=== PATIENT | male | born 1950 | race Caucasian/White ===

== ENCOUNTER 2018-03-22 18:10 | Emergency (ER) | payer MEDICARE, OTHER ==
--- NOTE | 2018-03-22 19:15 | ULT ---
LEFT LOWER EXTREMITY VENOUS DOPPLER: 03/22/18 HISTORY: Left lower extremity pain and edema. COMPARISON: None. TECHNIQUE: Real time guerrero scale, color doppler and spectral analysis of the left upper extremity venous system w as performed. The common femoral, femoral, proximal portion of the greater saphenous and deep femora l veins as well as the popliteal and posterior tibial veins were interrogated. Normal flow, augmentation, and compression. IMPRESSION: No deep vein thrombosis. POS: MERLYN
== END 2018-03-22 19:42 | disposition home or self-care (01) ==
LOC: ERS 18:10
DX: S86.912A Strain of unspecified muscle(s) and tendon(s) at lower leg level, left leg, initial encounter (principal); E11.9 Type 2 diabetes mellitus without complications; I10 Essential (primary) hypertension; F41.9 Anxiety disorder, unspecified; Z87.891 Personal history of nicotine dependence; Z85.46 Personal history of malignant neoplasm of prostate; Z79.899 Other long term (current) drug therapy; Z79.82 Long term (current) use of aspirin; X58.XXXA Exposure to other specified factors, initial encounter

== ENCOUNTER 2019-01-07 04:58 | Outpatient (CLI) | payer MEDICARE ==
[2019-01-07 12:22] LABS: #Eosinphils 0.1 thou/uL (0.0-0.7); #Lymphocytes 1.2 thou/uL (1.20-3.40); #Monocytes 0.5 thou/uL (0.11-0.59); #Neutrophils 2.8 thou/uL (1.40-6.50); %Basophils 0.5 % (0.0-1.0); %Eosinophils 2.3 % (0.0-10.0); %Lymphocytes 26.4 % (21.0-51.0); %Monocytes 11.3 % (0.0-10.0); %Neutrophils 59.5 % (42.0-75.0); Hemoglobin 16.8 g/dL (14.0-18.0); Mean Corpuscular HGB CONC 33.8 g/dL (32.0-36.0); Mean Corpuscular Hemoglobin 31.3 pg (27.0-31.0); Mean Corpuscular Volume 92.6 fL (78.0-98.0); Mean Platelet Volume 7.5 fL (7.4-10.4); Platelet Count 214 thou/uL (130-400); RBC Distribution Width 11.4 % (11.5-14.5); Red Blood Cell (RBC) Count 5.37 mill/uL (4.70-6.10); White Blood Cell (WBC) Count 4.7 thou/uL (4.8-10.8)
[2019-01-07 12:34] LABS: Anion Gap 16 mmol/L (10-20); BUN (Urea Nitrogen) 23 mg/dL (8.4-25.7); Calc. Creatinine Clearance 0 mL/min (70-130); Carbon Dioxide 25 mmol/L (23-31); Chloride 105 mmol/L (98-107); Estimated GFR-MDRD 64; Glucose 174 mg/dL (80-115); Potassium 4.6 mmol/L (3.5-5.1); Sodium 141 mmol/L (136-145)
== END 2019-01-07 04:59 | disposition home or self-care (01) ==
LOC: LABBT 04:58
PROVIDERS: ATTEND Specialist
DX: Z01.818 Encounter for other preprocedural examination (principal); K42.9 Umbilical hernia without obstruction or gangrene
CPT/HCPCS: 80048; 85025; 93005; 93010

== ENCOUNTER 2019-01-10 05:53 | Day surgery (SDC) | payer MEDICARE ==
--- NOTE | 2019-01-06 11:26 | HP ---
HISTORY OF PRESENT ILLNESS: Melvin Oliva is a 67-year-old male patient, retired oilfield worker and meat cutting teacher, presents with history of umbilical hernia present for many years, but bothersome in the last month. He desires repair. Plan is for robotic repair using mesh as an outpatient. He understands risks and benefits of procedure and consents. The patient also has concerns regarding his right shoulder, it has been bothersome for many years, but more bothersome lately causing increased pain especially at night. I have referred him to Dr. Salmon for evaluation. The patient reports a history of prostatitis, chronic. He has had radiation therapy 2 to 3 years ago for prostate cancer and I have told him we will avoid placing a Meza perioperatively. ALLERGIES: NONE. SOCIAL HISTORY: Tobacco, none. Alcohol, none. MEDICATIONS: 1. Aspirin 81 mg a day. 2. Invokana. 3. Vitamin D3. 4. Ezetimibe 10 mg daily. 5. Glimepiride 4 mg daily. 6. Synthroid 125 mcg daily. 7. Metoprolol 50 mg daily. 8. Omeprazole 20 mg daily. 9. Rosuvastatin 20 mg a day. 10. Januvia 200 mg daily. ALLERGIES: NONE. PAST SURGICAL HISTORY: ORIF of shoulder, lumbar surgery. PAST MEDICAL HISTORY: History of diabetes mellitus type 2, hypertension; GERD, controlled with Prilosec, asymptomatic currently; hypothyroidism treated medically; history of prostate cancer; chronic prostatitis, asymptomatic. REVIEW OF SYSTEMS: Ten-point review of systems noncontributory. PHYSICAL EXAMINATION: VITAL SIGNS: 239 pounds, 5 foot 10 inches, blood pressure 139/85, pulse 69, temperature 98.4 degrees. HEAD, EARS, EYES, NOSE, AND THROAT: Unremarkable. Sclerae nonicteric. LUNGS: Clear to auscultation. CARDIAC: Regular rate and rhythm without murmur or gallop. ABDOMEN: Soft. Umbilical hernia present, reducible. EXTREMITIES: Unremarkable. No ankle edema. SKIN: Nonjaundiced. ASSESSMENT AND PLAN: Umbilical hernia. PLAN: 1. Mesh repair, robotic approach. He understands risks and benefits. 2. Right shoulder complaints, refer to Dr. Salmon. Job ID: [id number]
[2019-01-10] MEDS ORDERED: Ketorolac Tromethamine 30 MG/ML VIAL ONE (06:26)
[2019-01-10] MEDS ORDERED: Midazolam HCl 2 mg/2 ml Vial ONE (06:38)
[2019-01-10] MEDS ORDERED: Fentanyl 250 MCG/5 ML VIAL ONE (06:38)
[2019-01-10] MEDS ORDERED: Bupivacaine/Epinephrine 0.25% 30 ML VIAL ONE (06:57)
--- NOTE | 2019-01-10 13:35 | OP ---
DATE OF PROCEDURE: 01/10/2019 PREOPERATIVE DIAGNOSIS: Umbilical hernia, incarcerated with fat. POSTOPERATIVE DIAGNOSIS: Umbilical hernia, incarcerated with fat. PROCEDURES PERFORMED: Robot laparoscopic repair of umbilical hernia, primary closure of fascial defect with 8 cm Ventralight mesh reinforcement of the fascial closure. ANESTHESIA: General, local of 0.5% Marcaine with epinephrine 30 mL. Meza placed at the beginning of the procedure and removed at the end, 180 mL left in to facilitate voiding and discharge. DESCRIPTION OF PROCEDURE: The patient was taken to the operating room, where under general anesthesia, Meza catheter was placed. Abdomen was clipped of hair, prepared with ChloraPrep and draped in routine fashion. Local anesthetic of 0.5% Marcaine with epinephrine 30 mL volume total used, infiltrated the skin and subcutaneous tissue about each port site. Left paramedian subxiphoid incision was made. Pneumoperitoneum to 15 mmHg was obtained with a Veress needle placement with an 11 balloon port presenting the laparoscope placing bilateral far lateral subcostal incision was made with 8 mm ports. A robot was docked and robot repair of umbilical hernia performed. Fatty tissue cleared of the fascia clearing the falciform cephalad for the mesh, direct approximation, overlay of the fascia. The fascial defect was closed with continuous suture #0 V-Loc suture. Pneumoperitoneum had been reduced to 9 mmHg. Mesh was then inserted and the non-coated side placed against the abdominal wall and secured with continuous suture of 2-0 V-Loc. A good approximation was noted. Good cosmetic hernia repair was appreciated. Pneumoperitoneum was reduced and good hemostasis was noted. All instruments were removed. Subxiphoid fascia was approximated with [id number] suture of 0 Vicryl suture. All skin incision was closed with continuous subcuticular suture of 4-0 Monocryl and [place] glue applied. The patient tolerated the procedure well. Job ID: [id number]
== END 2019-01-10 11:50 | disposition home or self-care (01) ==
LOC: SDC 05:53
PROVIDERS: ATTEND Specialist
PROC: 0WUF4JZ Supplement Abdominal Wall with Synthetic Substitute, Percutaneous Endoscopic Approach (ICD-10-PCS; principal; 2019-01-10)
DX: K42.0 Umbilical hernia with obstruction, without gangrene (principal); N41.1 Chronic prostatitis; E11.9 Type 2 diabetes mellitus without complications; I10 Essential (primary) hypertension; K21.9 Gastro-esophageal reflux disease without esophagitis; E03.9 Hypothyroidism, unspecified; Z79.82 Long term (current) use of aspirin; Z79.84 Long term (current) use of oral hypoglycemic drugs; Z79.899 Other long term (current) drug therapy
CPT/HCPCS: 49653; C1781; J0131; J1885; J2250; J3010

== ENCOUNTER 2019-03-20 12:33 | Outpatient (CLI) | payer MEDICARE ==
--- NOTE | 2019-03-20 14:04 | RAD ---
Lumbar spine 3 views HISTORY: Low back pain. FINDINGS: Lateral views include neutral, flexion, and extension positioning. Vertebral body heights a re maintained. Prominent osteophytosis. Frontal view not included. Precise measurement of spondylolisthesis at the lumbosacral junction is difficult due to projection a nd severe sclerosis. It is estimated at 1.5 cm the neutral view, 1.7 cm extension, and 2.1 cm upon flexion This is suggestive translational motion at the lumbosacral spondylolisthesis.
--- NOTE | 2019-03-20 15:42 | MRI ---
Exam: MRI LUMBAR SPINE WITH AND WITHOUT CONTRAST: HISTORY: Low back pain, x4 days. Previous diskectomy. COMPARISON: None TECHNIQUE: MRI lumbar spine is performed with and without intravenous gadolinium administration. Mult isequential, multiplanar imaging performed. FINDINGS: Appropriate T1 marrow signal intensity of lumbar vertebra. Lumbar spine vertebral body height is main tained. No fracture. 4.7 mm of retrolisthesis of L4 upon L5. 12.2 mm of anterolisthesis of L5 upon S1. There appear to be bilateral pars defects at L5. There is STIR hyperintensity involving the poste rior elements at L3-L4, L4-L5 bilaterally suggesting edema. Appropriate signal intensity of the visualized solid organs. Symmetric signal intensity of the parasp inal muscles. Conus medullaris terminates at the inferior aspect of T12. Postcontrast images do not demonstrate any abnormal vertebral body enhancement. No evidence of epidur al abscess. No abnormal enhancement with regards to the visualized spinal cord, cauda equina, and conus medullaris. T12-L1: Adequate disc hydration. No significant central canal stenosis or neural foraminal narrowing. L1-L2: Mild desiccation without significant loss of disc space height. No significant central canal s tenosis. Bilaterally, neural foramina are patent. L2-L3: Mild disc desiccation without significant loss of disc space height. Generalized disc bulge, l igamentum flavum thickening, and facet hypertrophy do not result in significant central canal stenosis. Bilaterally, neural foramina are patent. L3-L4: Mild loss of disc space height. Generalized disc bulge, ligament flavum thickening, and facet hypertrophy result in mild central canal stenosis. Mild right and mild to moderate left neural foraminal narrowing L4-L5: Desiccation with severe loss of disc space height. No significant posterior disc abnormality. There is evidence of epidural lipomatosis with resultant mild to moderate central canal stenosis. Abnormal enhancement in the right subarticular zone suggesting scar tissue. Scar tissue encompasses t he traversing right L5 nerve root. Left subarticular zone is unremarkable. Moderate to severe bilateral neural foraminal narrowing. There does appear to be a partial right hemilaminotomy defect. L5-S1: Desiccation with severe loss of disc space height. Generalized disc bulge, ligament flavum thi ckening, and facet hypertrophy are noted. There is evidence of epidural lipomatosis with moderate central canal stenosis. Narrowing of both subarticular zones. Mass effect without obscuration the tra versing right S1 nerve root. Partial obscuration of the traversing left S1 nerve root. Severe right and left foraminal narrowing. IMPRESSION: 1. Spondylolisthesis at L4-L5 and L5-S1 as described above. There is grade 2 anterolisthesis of L5 up on S1 with associated bilateral pars defects. 2. Epidural lipomatosis at L4-L5 and L5-S1. Mild to moderate central canal stenosis at L4-L5 and L5- S1. 3. Partial obscuration of the traversing left S1 nerve root. 4. Enhancing scar tissue in the right subarticular zone at L4-L5, encompassing the traversing right L 5 nerve root. 5. Severe bilateral foraminal narrowing at L5-S1. Transcribed Date/Time: 03/20/2019 4:00 PM
== END 2019-03-20 12:34 | disposition home or self-care (01) ==
LOC: TBSIIMAG 12:33
PROVIDERS: ATTEND Neurological Surgery
DX: M43.16 Spondylolisthesis, lumbar region (principal); M43.17 Spondylolisthesis, lumbosacral region; M48.061 Spinal stenosis, lumbar region without neurogenic claudication; M48.07 Spinal stenosis, lumbosacral region; E88.2 Lipomatosis, not elsewhere classified; L90.5 Scar conditions and fibrosis of skin
CPT/HCPCS: 72100; 72158; 82565